=== PATIENT | male | born 1960 | race Caucasian/White ===

== ENCOUNTER 2018-11-02 13:54 | Outpatient (CLI) | payer OTHER ==
--- NOTE | 2018-11-02 14:15 | RAD ---
PA AND LATERAL CHEST: History: Disability evaluation. FINDINGS: Comparison is made with exam of 11-11-04. The heart size is borderline. There is scarring of the left costophrenic angle. There are changes of median sternotomy. No focal areas of consolidation, pneumothoraces, porsha pulmonary edema or pleural effusions are seen. IMPRESSION: No acute process. POS: [facility]
== END 2018-11-02 13:55 | disposition home or self-care (01) ==
LOC: NAV RAD 13:54
PROVIDERS: ATTEND Family Medicine
DX: Z02.71 Encounter for disability determination (principal); I25.810 Atherosclerosis of coronary artery bypass graft(s) without angina pectoris
CPT/HCPCS: 71046